=== PATIENT | female | born 1960 | race Two or more races ===

== ENCOUNTER 2016-03-10 10:55 | Emergency (ER) | payer OTHER ==
[~2016-03-10] VITALS: Ht 154.9 cm; Wt 81.6 kg
[2016-03-10 11:24] VITALS: BP 127/76
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
[2016-03-10] MEDS ORDERED: TYLENOL EXTRA500 MG ORAL (13:00)
[2016-03-10 13:05] VITALS: BP 125/74
[2016-03-10 13:17] VITALS: BP 125/74
--- NOTE | 2016-03-10 17:22 | Diagnostic Imaging Report ---
Indication: PAIN Technique: 2 views of the left hip Comparison: None Findings: No acute fractures. No dislocations. Joint spaces are preserved. Normal mineralization. Impression: No acute process
== END 2016-03-10 13:20 | disposition home or self-care (01) ==
LOC: EMR 12:57
DX: M25.552 Pain in left hip (principal)
CPT/HCPCS: 73502; 99283

== ENCOUNTER 2016-11-08 10:34 | Emergency (ER) | payer OTHER ==
[~2016-11-08] VITALS: Ht 152.4 cm; Wt 81.6 kg
[~2016-11-08 10:34] MED LIST: TYLENOL EXTRA500 MG ORAL
[2016-11-08] MEDS ORDERED: Acetaminophen 500mg (ES) tab ORAL ONE (11:15)
--- NOTE | 2016-11-08 12:33 | Diagnostic Imaging Report ---
Indication: Chest pain Comparison: None A single view chest radiograph was obtained. Findings: Cardiomediastinal appearance is within normal limits for age. Pulmonary vascularity is appropriate. The diaphragmatic contour is smooth and costophrenic angles are sharp. No pleural effusions are identified. The bones are unremarkable. Impression: No acute findings
--- NOTE | 2016-11-08 13:18 | Emergency Room Report ---
History of Present Illness General Chief Complaint: Back Pain-No Injury Source: Patient Present Illness HPI Patient c/o upper back pain. She denies trauma or event which started this. She has increased pain when she moves, breathes, coughs. No fever, dyspnea, productive phlegm. No sore throat. No swelling of LE, calf pain, hemoptysis. Pain 8/10 when moving, 4-5/10 when quiet. She had this once before. Has taken advil with minimal relief. She works sewing. No smoke, HTN, DM, family hx CAD. She does have arthritis, not specific diagnosis. Allergies: Coded Allergies: No Known Allergies (Unverified , 03/10/16) Patient History Past Medical History: see triage record Social History: Denies: smoking, alcohol use, drug use Social History Narrative "costura" seamstress Reviewed Nursing Documentation: PMH: Agreed, PSxH: Agreed Review of Systems All Other Systems: negative except mentioned in HPI Physical Exam Vital Signs Date Time Temp Pulse Resp B/P (MAP) Pulse Ox O2 Delivery O2 Flow Rate FiO2 11/08/16 10:38 97.0 72 20 129/78 99 Room Air Sp02 EP Interpretation: reviewed, normal General Appearance: well appearing, no apparent distress, GCS 15 Head: normocephalic Eyes: bilateral eye normal inspection, bilateral eye PERRL ENT: moist mucus membranes Neck: supple Respiratory: lungs clear, normal breath sounds, other - upper back tenderness - muscle, not point tenderness Cardiovascular #1: regular rate, rhythm, no edema Cardiovascular #2: 2+ radial (R) Gastrointestinal: normal inspection, normal bowel sounds, non tender, no mass, non-distended Musculoskeletal: gait/station normal, normal range of motion, no calf tenderness, other - see chest, FROM - muscles tender and tight - when palp - recreates pain Neurologic: alert, oriented x3, grossly normal Psychiatric: mood/affect normal Skin: normal inspection, warm/dry Medical Decision Making Diagnostic Impression: Primary Impression: Back pain Qualified Codes: M54.6 - Pain in thoracic spine Additional Impression: Muscle spasm ER Course Patient presents with upper back pain. No cardiac risk factors and not sound exertional. Ddx: bronchitis, PE, muscle strain/spasm, spine osteo amongst others. Exam and VS against PE. Evaluation with CXR. Treatment with motrin and tylenol. Sy and signs are against infectious etiology. CXR no acute disease. Improved with treatment. She was mainly concerned about serious causes. Occupation possibly contributes. Patient stable for outpatient observation and treatment. Chest X-Ray Diagnostic Results Chest X-Ray Diagnostic Results : Chest X-Ray Ordered: Yes # of Views/Limited/Complete: 1 View Indication: Chest Pain EP Interpretation: Yes Interpretation: no consolidation, no effusion, no pneumothorax, no acute cardiopulmonary disease Impression: No acute disease Electronically Signed by: Jose L Freitas MD Last Vital Signs Date Time Temp Pulse Resp B/P (MAP) Pulse Ox O2 Delivery O2 Flow Rate FiO2 11/08/16 13:28 98.0 70 16 130/80 98 Room Air Status: improved Disposition: HOME, SELF-CARE Condition: Improved Scripts Ibuprofen* (MOTRIN*) 600 Mg Tablet 600 MG ORAL Q6H Y for For Pain, #20 TAB Prov: Jose L Freitas M.D. 11/08/16 Methocarbamol* (ROBAXIN*) 500 Mg Tablet 500 MG PO TID Y for muscle spasms, #12 TAB 0 Refills Prov: Jose L Freitas M.D. 11/08/16 Tramadol Hcl* (ULTRAM*) 50 Mg Tablet 50 MG ORAL Q6H Y for For Pain, #14 TAB 0 Refills Prov: Jose L Freitas M.D. 11/08/16 Referrals: [facility]ERR[facility] (PCP) Jose L Freitas M.D. Nov 08, 2016 13:18
[2016-11-08] MEDS ORDERED: ROBAXIN500 MG PO (13:22)
[2016-11-08] MEDS ORDERED: TRAMADOL HCL50 MG ORAL (13:22)
[2016-11-08] MEDS ORDERED: IBUPROFEN600 MG ORAL (13:22)
[2016-11-08 13:26] VITALS: BP 130/80
[2016-11-08 13:28] VITALS: BP 130/80
== END 2016-11-08 13:31 | disposition home or self-care (01) ==
LOC: EMR 11:10
DX: M54.6 Pain in thoracic spine (principal); M62.838 Other muscle spasm; M19.90 Unspecified osteoarthritis, unspecified site; R07.9 Chest pain, unspecified
CPT/HCPCS: 71010; 99284

== ENCOUNTER 2017-01-14 19:44 | Emergency (ER) | payer OTHER ==
[~2017-01-14] VITALS: Ht 152.4 cm; Wt 85.7 kg
[~2017-01-14 19:44] MED LIST changes: +IBUPROFEN600 MG ORAL; +ROBAXIN500 MG PO; +TRAMADOL HCL50 MG ORAL
--- NOTE | 2017-01-14 20:57 | Emergency Room Report ---
History of Present Illness General Chief Complaint: Upper Extremity Injury Source: Patient Present Illness HPI 56-year-old female, presenting with left elbow pain after fall. States that she had a mechanical fall, denies hitting her head or any LOC. Patient took 600 mg of Motrin one hour prior to arrival. Pointing to left elbow for pain no other complaints Allergies: Coded Allergies: No Known Allergies (Unverified , 03/10/16) Patient History Past Medical History: see triage record Past Surgical History: none Pertinent Family History: none Reviewed Nursing Documentation: PMH: Agreed, PSxH: Agreed Review of Systems All Other Systems: negative except mentioned in HPI Physical Exam Vital Signs Date Time Temp Pulse Resp B/P (MAP) Pulse Ox O2 Delivery O2 Flow Rate FiO2 01/14/17 19:50 97.9 95 16 125/87 97 Room Air Sp02 EP Interpretation: reviewed, normal General Appearance: normal inspection, well appearing, no apparent distress, alert, GCS 15, non-toxic Head: normocephalic, atraumatic Eyes: bilateral eye normal inspection, bilateral eye PERRL, bilateral eye EOMI ENT: normal ENT inspection, normal pharynx, normal voice, moist mucus membranes Neck: normal inspection, full range of motion, supple Respiratory: normal inspection, lungs clear, normal breath sounds, no respiratory distress, no retraction, no wheezing, speaking full sentences, chest symmetrical Cardiovascular #1: normal inspection, regular rate, rhythm, no edema, normal capillary refill Cardiovascular #2: 2+ radial (R), 2+ radial (L) Gastrointestinal: normal inspection, non tender, soft, non-distended, no guarding Musculoskeletal: other - Left elbow, tender to palpation, edema, limited range of motion secondary to pain, full range of motion of wrist and shoulder. Radial median ulnar nerve function intact Neurologic: normal inspection, alert, oriented x3, responsive, motor strength/ tone normal, sensory intact, normal gait, speech normal Psychiatric: normal inspection, judgement/insight normal, memory normal Skin: normal inspection, normal color, no rash, warm/dry, well hydrated, normal turgor Procedures Splinting Splinting : Consent: Verbal Location: L elbow Hand-Made Type: plaster Splint: posterior long Pre-Proc Neuro Vasc Exam: normal Post-Proc Neuro Vasc Exam: normal Patient Tolerated: Well Complications: None Medical Decision Making Diagnostic Impression: Primary Impression: Radial head fracture, closed ER Course 56-year-old female, elbow pain after fall DDX: Sprain/strain vs. fracture Plan: Pain control with motrin XR ER course: Patient reports improvement of pain with motrin. X-ray revealing radial head fracture Posterior long-arm splint placed The patient is neurovascularly intact before and after splint placement Disposition: Patient is to be discharged home with a prescription of motrin. Patient instructed to keep splint on at all times, and to follow up with orthopedic surgery in 1 week without fail Patient educated to rest, ice, and elevate extremity and to avoid vigorous activity. Strict precautions discussed with patient on when to return to the emergency room including increased redness or swelling joints, increased pain/swelling of extremity, fever or chills, which could indicate severe illness. Patient is to follow up with their primary care doctor within 5 days. Please note that this Emergency Department Report was dictated using [employer] speaking n[employer] technology software, occasionally this can lead to erroneous entry secondary to interpretation by the dictation equipment. Xray ordered: Left elbow 2 view Indication: Pain EP Interpretation: Yes Interpretation: Radial head fracture, no dislocation Impression: Radial head fracture Electronically signed by Brandin Ramos MD Xray: Left forearm 2 view Indication: Pain EP Interpretation: Yes Interpretation: Radial head fracture, no dislocation Impression: Radial head fracture Electronically signed by Brandin Ramos MD Last Vital Signs Date Time Temp Pulse Resp B/P (MAP) Pulse Ox O2 Delivery O2 Flow Rate FiO2 01/14/17 19:50 97.9 95 16 125/87 97 Room Air Disposition: HOME, SELF-CARE Condition: Improved Brandin Ramos M.D. Jan 14, 2017 20:57
[2017-01-14 21:13] VITALS: BP_SYST 122; BP_SYST 125; BP_DIAS 83; BP_DIAS 87
--- NOTE | 2017-01-15 10:21 | Diagnostic Imaging Report ---
Indication: Pain Findings: 3 views of the left elbow were obtained. Joint effusion demonstrated. Comminuted intra-articular fracture of the radial head demonstrated. Impression: Acute radial head fracture
--- NOTE | 2017-01-15 10:21 | Diagnostic Imaging Report ---
Indication: Pain Findings: 2 views of the left forearm were obtained. Fracture radial head noted. No other fractures are seen or malalignment identified. The Impression: Acute fracture of the radial head
== END 2017-01-14 21:14 | disposition home or self-care (01) ==
LOC: EMR 20:00
DX: S52.122A Displaced fracture of head of left radius, initial encounter for closed fracture (principal); W10.9XXA Fall (on) (from) unspecified stairs and steps, initial encounter; Y92.009 Unspecified place in unspecified non-institutional (private) residence as the place of occurrence of the external cause
CPT/HCPCS: 29105; 99283

== ENCOUNTER 2017-01-19 20:37 | Emergency (ER) | payer OTHER ==
[~2017-01-19] VITALS: Ht 154.9 cm; Wt 86.2 kg
[2017-01-19 21:22] VITALS: BP 127/78
--- NOTE | 2017-01-19 21:24 | Emergency Room Report ---
History of Present Illness General Chief Complaint: Upper Extremity Injury Source: Patient Present Illness HPI 56-year-old female walks in with request for placement of long-arm splint Patient was here 5 days ago and found to have a radial head fracture left elbow was placed in long-arm splint States pain much improved Concern with some swelling of the hand Saw primary care doctor yesterday however unable to get referral to orthopedist - she does ot know when she will have appointment Taking ibuprofen at home with improvement Allergies: Coded Allergies: No Known Allergies (Unverified , 03/10/16) Patient History Past Medical History: none Past Surgical History: none Pertinent Family History: none Last Menstrual Period: n/a Now: No Immunizations: UTD Reviewed Nursing Documentation: PMH: Agreed, PSxH: Agreed Review of Systems All Other Systems: negative except mentioned in HPI Physical Exam Vital Signs Date Time Temp Pulse Resp B/P (MAP) Pulse Ox O2 Delivery O2 Flow Rate FiO2 01/19/17 20:48 98.1 88 18 127/78 96 Room Air Sp02 EP Interpretation: reviewed, normal General Appearance: normal inspection, well appearing, no apparent distress, alert, GCS 15, non-toxic Head: normocephalic, atraumatic Eyes: bilateral eye PERRL, bilateral eye EOMI ENT: normal ENT inspection, hearing grossly normal, normal voice Neck: normal inspection, full range of motion, supple, no bony tend Respiratory: normal inspection, lungs clear, normal breath sounds, no respiratory distress, no retraction, no wheezing Cardiovascular #1: regular rate, rhythm, no edema Gastrointestinal: normal inspection, normal bowel sounds, non tender, soft, no guarding, no hernia Genitourinary: no CVA tenderness Musculoskeletal: normal inspection, back normal, normal range of motion, Nubia' s Sign negative, other - Left elbow: posterior long-arm splint in place; some nonpitting edema and noted. However neurovascularly intact. 2+ radial pulse. 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, motor strength/tone normal, speech normal Psychiatric: normal inspection, judgement/insight normal, mood/affect normal Skin: normal inspection, normal color, no rash Medical Decision Making Diagnostic Impression: Primary Impression: Radial head fracture, closed Qualified Codes: S52.125D - Nondisplaced fracture of head of left radius, subsequent encounter for closed fracture with routine healing ER Course 56-year-old female with subsequent visit for left radial head fracture Pain improved Sling and splint were placed Neurovascular intact, no sign of infection Advise continue pain meds as needed Strong recommendation for close orthopedic followup in one week ER course: Patient has remained stable during ED stay. Patient is to be discharged to home. Patient is instructed to follow up with ortho in 7 days Strict return precautions discussed with patient such as fever, chills, worsening/severe pain, nausea, vomiting, which may indicate severe illness. Patient verbalizes understanding and agrees with plan. Please note that this Emergency Department Report was dictated using [employer] technology software, occasionally this can lead to erroneous entry secondary to interpretation by the dictation equipment Last Vital Signs Date Time Temp Pulse Resp B/P (MAP) Pulse Ox O2 Delivery O2 Flow Rate FiO2 01/19/17 20:48 98.1 88 18 127/78 96 Room Air Status: improved Disposition: HOME, SELF-CARE FAUZIA PAULA M.D. Jan 19, 2017 21:24
[2017-01-19 21:54] VITALS: BP 130/66
== END 2017-01-19 21:54 | disposition home or self-care (01) ==
LOC: EMR 21:26
DX: S52.122A Displaced fracture of head of left radius, initial encounter for closed fracture (principal); X58.XXXA Exposure to other specified factors, initial encounter; Y92.89 Other specified places as the place of occurrence of the external cause
CPT/HCPCS: 29105; 99283

== ENCOUNTER 2017-03-26 13:58 | Emergency (ER) | payer OTHER ==
[~2017-03-26] VITALS: Ht 154.9 cm; Wt 86.2 kg
[2017-03-26] MEDS ORDERED: OMEPRAZOLE20 M2 ORAL (14:11)
[2017-03-26 15:19] LABS: APPEARANCE,URINE CLEAR; BILIRUBIN, URINE NEGATIVE (NEGATIVE); GLUCOSE, URINE (UA) NEGATIVE (NEGATIVE); KETONES,URINE NEGATIVE (NEGATIVE); LEUKOCYTE ESTERASE ,URINE NEGATIVE (NEGATIVE); NITRITE,URINE NEGATIVE (NEGATIVE); PH,URINE 6.5 (4.5-8.0); PROTEIN,URINE NEGATIVE (NEGATIVE); UROBILINOGEN,URINE NORMAL MG/DL (0.0-1.0)
[2017-03-26] MEDS ORDERED: IBUPROFEN600 MG ORAL (15:30)
[2017-03-26] MEDS ORDERED: PHENAZOPYRIDIN100 MG ORAL (15:30)
[2017-03-26] MEDS ORDERED: PROMETHAZINE-D118 ML ORAL (15:30)
[2017-03-26 15:35] VITALS: BP 140/72
--- NOTE | 2017-03-26 20:55 | Emergency Room Report ---
History of Present Illness General Chief Complaint: Upper Respiratory Illness Source: Patient Present Illness [facility] The patient is a 56-year-old female presenting for complaints of coughing as well as discolored urine. She states that she noticed a cough for approximately one week. Described as a dry cough. She denies any known sick contacts. She denies other symptoms including fever, chills, hemoptysis, shortness of breath, chest pain, myalgia, rash. She is also complaining of discolored urine described as pink. She denies dysuria, increased urinary frequency, vaginal discharge, abdominal pain. She is unsure she consumed any foods or liquids with coloring Allergies: Coded Allergies: No Known Allergies (Unverified , 03/10/16) Patient History Past Medical History: see triage record Past Surgical History: other Reviewed Nursing Documentation: PMH: Agreed, PSxH: Agreed Review of Systems All Other Systems: negative except mentioned in HPI Physical Exam Vital Signs Date Time Temp Pulse Resp B/P (MAP) Pulse Ox O2 Delivery O2 Flow Rate FiO2 03/26/17 14:06 97.7 101 18 138/78 95 Room Air Sp02 EP Interpretation: reviewed, normal General Appearance: no apparent distress, alert, GCS 15, non-toxic Head: normocephalic, atraumatic Eyes: bilateral eye normal inspection, bilateral eye PERRL ENT: hearing grossly normal, normal pharynx, no angioedema, normal voice Neck: full range of motion, supple/symm/no masses Respiratory: chest non-tender, lungs clear, normal breath sounds, no accessory muscle use, no wheezing, speaking full sentences Cardiovascular #1: regular rate, rhythm, no edema Gastrointestinal: normal bowel sounds, non tender, soft, non-distended, no guarding, no rebound Genitourinary: normal inspection, no CVA tenderness Musculoskeletal: back normal, gait/station normal, normal range of motion, non- tender Neurologic: alert, oriented x3, responsive, motor strength/tone normal, sensory intact, speech normal Psychiatric: judgement/insight normal, memory normal, mood/affect normal, no suicidal/homicidal ideation Skin: normal color, no rash, warm/dry, well hydrated Medical Decision Making PA Attestation Dr. Olguin is my supervising physician. Patient management was discussed with my supervising physician Diagnostic Impression: Primary Impression: Dysuria Additional Impression: Cough ER Course The patient is a 56-year-old female presenting for complaints of coughing as well as discolored urine. Differential diagnosis considered but not limited to: UTI, vaginitis, pyelonephritis, pyelonephrosis, PID, ectopic Differential diagnosis include but not limited to pharyngitis, sinusitis, AOM, bronchitis, PNA PE:afebrile. No apparent distress. No TTP over maxillary or frontal sinuses. Lungs CTA bilat. No wheezing. No accessory muscle use. Heart: RRR, no abnormal heart sounds Ears: external auditory canal clear. Non erythematous. Bilat TM intact. Cone of light present bilat. No bulging of TM. No serous fluid seen. no nasal D/C no cervical lymphad No tonsillar exudate. Uvula midline.Oropharynx non erythematous Abd soft and non tender. No CVA tenderness Urinalysis unremarkable. Chest x-ray unremarkable The patient is discharged home and will be treated with symptomatic control. ER precautions are given Laboratory Tests Test 03/26/17 14:20 Urine Color Urine Appearance Clear Urine pH 6.5 (4.5-8.0) Urine Specific [place] 1.005 (1.005-1.035) Urine Protein Negative (NEGATIVE) Urine Glucose (UA) Negative (NEGATIVE) Urine Ketones Negative (NEGATIVE) Urine Occult Blood Negative (NEGATIVE) Urine Nitrite Negative (NEGATIVE) Urine Bilirubin Negative (NEGATIVE) Urine Urobilinogen Normal MG/DL (0.0-1.0) Urine Leukocyte Esterase Negative (NEGATIVE) Lab Results Impression UA unremarkable Chest X-Ray Diagnostic Results Chest X-Ray Diagnostic Results : Chest X-Ray Ordered: Yes # of Views/Limited/Complete: 1 View Indication: Other - cough EP Interpretation: Yes SHAE Xray: Interpretation reviewed, by supervising MD, and agrees with findings. Interpretation: no consolidation, no effusion, no pneumothorax, no acute cardiopulmonary disease Impression: No acute disease Electronically Signed by: Allan Hall PA-C Last Vital Signs Date Time Temp Pulse Resp B/P (MAP) Pulse Ox O2 Delivery O2 Flow Rate FiO2 03/26/17 15:35 97.7 80 20 140/72 97 Room Air Status: improved Disposition: HOME, SELF-CARE Condition: Improved Scripts D-Methorphan Hb/Prometh Hcl* (PROMETHAZINE-DM SYRUP*) 118 Ml Syrup 5 ML ORAL Q6H Y for For Cough, #118 ML 0 Refills Prov: ALLAN HALL 03/26/17 Phenazopyridine Hcl* (PYRIDIUM*) 100 Mg Tablet 100 MG ORAL THREE TIMES A DAY, #9 TAB Prov: ALLAN HALL.A. 03/26/17 Ibuprofen* (MOTRIN*) 600 Mg Tablet 600 MG ORAL Q8H Y for For Pain, #30 TAB 0 Refills Prov: ALLAN HALL 03/26/17 Patient Instructions: Cough, Adult Additional Instructions: I discussed my findings with the patient. All questions and concerns have been answered. Treatment and medication compliance have been addressed. I advised the patient that they need to follow up with PMD in 3-5 days. Return to ED if symptoms worsen, new symptoms arise, or if needed for any reason. Patient verbalized understanding of discharge instructions. ALLAN HALL Mar 26, 2017 20:55
--- NOTE | 2017-03-27 10:52 | Diagnostic Imaging Report ---
Indication: Cough Comparison: 11/08/2016 A single view chest radiograph was obtained. Findings: Cardiomediastinal appearance is within normal limits for age. Pulmonary vascularity is appropriate. The diaphragmatic contour is smooth and costophrenic angles are sharp. No pleural effusions are identified. The bones are unremarkable. Impression: No acute findings
== END 2017-03-26 15:35 | disposition home or self-care (01) ==
LOC: EMR 14:32
DX: R05 Cough (principal); R30.0 Dysuria
CPT/HCPCS: 71045; 81003; 99284

== ENCOUNTER 2018-01-25 10:37 | Emergency (ER) | payer OTHER ==
[~2018-01-25] VITALS: Ht 154.9 cm; Wt 83.5 kg
[~2018-01-25 10:37] MED LIST changes: +OMEPRAZOLE20 M2 ORAL; +PHENAZOPYRIDIN100 MG ORAL; +PROMETHAZINE-D118 ML ORAL
[2018-01-25] MEDS ORDERED: clindamycin PO (10:47)
[2018-01-25] MEDS ORDERED: VITAMIN D400 INTLU ORAL (10:47)
[2018-01-25 11:15] VITALS: BP_SYST 124; BP_SYST 132; BP_DIAS 82; BP_DIAS 90
[2018-01-25] MEDS ORDERED: Tetanus/Diptheria/Pertussis Vaccine 0.5ml Syr IM ONE (11:15)
--- NOTE | 2018-01-25 12:39 | Emergency Room Report ---
History of Present Illness General Chief Complaint: Upper Extremity Injury Source: Patient Present Illness HPI Patient presents with reports of injury to the left index finger after a sewing machine injury This happened several days ago patient was seen by her primary physician initiated on antibiotics Patient reports that she was not able to get her tetanus shot as it was not available and presents for further evaluation Denies any trismus or TMJ pain denies any headache denies any chest pain or shortness of breath Allergies: Coded Allergies: No Known Allergies (Unverified , 03/10/16) Patient History Past Medical History: see triage record Pertinent Family History: none Reviewed Nursing Documentation: PMH: Agreed; PSxH: Agreed Nursing Documentation-PMH Past Medical History: No History, Except For Review of Systems All Other Systems: negative except mentioned in HPI Physical Exam Vital Signs Date Time Temp Pulse Resp B/P (MAP) Pulse Ox O2 Delivery O2 Flow Rate FiO2 01/25/18 10:40 97.7 83 17 132/90 98 Room Air Sp02 EP Interpretation: reviewed, normal General Appearance: well appearing, no apparent distress Head: normocephalic, atraumatic Eyes: bilateral eye PERRL, bilateral eye EOMI ENT: hearing grossly normal, normal pharynx, TMs + canals normal, uvula midline Respiratory: lungs clear, normal breath sounds, no rhonchi, no respiratory distress, no retraction, no accessory muscle use Musculoskeletal: other - Mild ecchymosis at the nailbed region consistent with the trauma Neurologic: oriented x3, responsive, nozzle tender III-XII nml as tested, motor strength/ tone normal, sensory intact Psychiatric: mood/affect normal Skin: palpation normal, other - As above Lymphatic: normal inspection, no adenopathy Medical Decision Making Diagnostic Impression: Primary Impression: puncture wound ER Course Given the patient's history and presentation Given the puncture wound with a needle She was provided with tetanus shot here She has appropriate outpatient follow-up and will return with any changes Last Vital Signs Date Time Temp Pulse Resp B/P (MAP) Pulse Ox O2 Delivery O2 Flow Rate FiO2 01/25/18 11:15 97.7 85 17 124/82 99 Room Air Status: improved Disposition: HOME, SELF-CARE Condition: Improved Referrals: NON PHYSICIAN (PCP) Patient Instructions: Puncture Wound, [id number] Additional Instructions: Patient is provided with the discharge instructions notified to follow up with primary doctor in the next 2-3 days otherwise return to the er with any worsening symptoms. Please note that this report is being documented using DRAGON technology. This can lead to erroneous entry secondary to incorrect interpretation by the dictating instrument. Nedra Salinas DO Jan 25, 2018 12:39
== END 2018-01-25 11:15 | disposition home or self-care (01) ==
LOC: EMR 10:55
DX: S61.231A Puncture wound without foreign body of left index finger without damage to nail, initial encounter (principal); Y93.D2 Activity, sewing; Y92.89 Other specified places as the place of occurrence of the external cause; Z23 Encounter for immunization
CPT/HCPCS: 90471; 90715; 99283

== ENCOUNTER 2019-03-30 13:30 | Emergency (ER) | payer OTHER ==
[~2019-03-30] VITALS: Ht 152.4 cm; Wt 78.9 kg
[~2019-03-30 13:30] MED LIST changes: +VITAMIN D400 INTLU ORAL; +clindamycin PO
[2019-03-30 13:34] VITALS: BP 125/78
--- NOTE | 2019-03-30 13:38 | NUR ---
ED Nurse Note: pt walked in to ED due to lower back pain for last 3 days. pt denies any injury or urinary problems. limited ROM noted due to pain. ambulatory with steady gait. AAO x4. respirations even and non-labored noted. will wait for the further order.
[2019-03-30] MEDS ORDERED: Methocarbamol 750mg tab ORAL ONE (13:45)
[2019-03-30 14:33] LABS: APPEARANCE,URINE CLEAR; BILIRUBIN, URINE NEGATIVE (NEGATIVE); COLOR,URINE PALE YELLOW; GLUCOSE, URINE (UA) NEGATIVE (NEGATIVE); KETONES,URINE NEGATIVE (NEGATIVE); LEUKOCYTE ESTERASE ,URINE NEGATIVE (NEGATIVE); NITRITE,URINE NEGATIVE (NEGATIVE); PH,URINE 5 (4.5-8.0); PROTEIN,URINE NEGATIVE (NEGATIVE); UROBILINOGEN,URINE NORMAL MG/DL (0.0-1.0)
--- NOTE | 2019-03-30 14:36 | Emergency Room Report ---
History of Present Illness General Chief Complaint: Back Pain-No Injury Source: Medical Record Present Illness HPI 58-year-old female with no significant past medical history here complaining of right-sided lower back pain x3 days. Patient denies any fall or injury. 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 Denies pain radiation, tingling numbness, saddle paresthesia, urinary or bowel incontinence. Denies any urinary frequency or urgency. Denies pain radiation into the suprapubic area. Denies fever and chills, nausea vomiting, diffuse abdominal pain. Denies chest pain, shortness of breath, palpitation, headache and dizziness. Has not taken medication for symptom relief. Allergies: Coded Allergies: No Known Allergies (Unverified , 03/10/16) Patient History Past Medical History: see triage record Past Surgical History: none Pertinent Family History: none Now: No Immunizations: UTD Reviewed Nursing Documentation: PMH: Agreed; PSxH: Agreed Nursing Documentation-PMH Past Medical History: No History, Except For Review of Systems All Other Systems: negative except mentioned in HPI Physical Exam Vital Signs Date Time Temp Pulse Resp B/P (MAP) Pulse Ox O2 Delivery O2 Flow Rate FiO2 03/30/19 13:34 98.1 83 15 125/78 95 Room Air Sp02 EP Interpretation: reviewed, normal General Appearance: no apparent distress, alert, GCS 15, non-toxic Head: normocephalic, atraumatic Eyes: bilateral eye normal inspection, bilateral eye PERRL ENT: hearing grossly normal, normal pharynx, no angioedema, normal voice Neck: full range of motion, supple/symm/no masses Respiratory: chest non-tender, lungs clear, normal breath sounds, no rhonchi, no wheezing, speaking full sentences Cardiovascular #1: regular rate, rhythm, no edema, no murmur Gastrointestinal: normal bowel sounds, non tender, soft, non-distended, no guarding, no rebound Rectal: deferred Genitourinary: no CVA tenderness Musculoskeletal: back normal, digits/nails normal, no calf tenderness, pelvis stable, non-tender Neurologic: alert, motor strength/tone normal, oriented x3, sensory intact, responsive, speech normal Psychiatric: judgement/insight normal, memory normal, mood/affect normal, no suicidal/homicidal ideation Skin: no rash, normal color Lymphatic: no adenopathy Medical Decision Making PA Attestation All diagnoses and treatment plans were reviewed and discussed with my supervising physician Dr. Freitas Diagnostic Impression: Primary Impression: Lumbar strain ER Course 58-year-old female with no significant past medical history here complaining of right-sided lower back pain x3 days. Patient denies any fall or injury. 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 Denies pain radiation, tingling numbness, saddle paresthesia, urinary or bowel incontinence. Denies any urinary frequency or urgency. Denies pain radiation into the suprapubic area. Denies fever and chills, nausea vomiting, diffuse abdominal pain. Denies chest pain, shortness of breath, palpitation, headache and dizziness. Has not taken medication for symptom relief. Ddx considered but are not limited to: Lumbar spine sprain, strain, fracture, contusion, neuropathy, pyelonephritis, UTI Vital signs: are WNL, pt. is afebrile H&PE are most consistent with: Lumbar strain ORDERS: UA, urine culture, Motrin, Robaxin, lidocaine patch ER intervention: Tylenol, Robaxin DISCHARGE: At this time pt. is stable for d/c to home. Will provide printed patient care instructions, and any necessary prescriptions. Care plan and follow up instructions have been discussed with the patient prior to discharge. Patient take medication as directed, follow-up primary care provider, increase oral hydration, no x-ray necessary as patient did not fall or injure herself and bony tenderness noted. No signs of CVA tenderness or pyelonephritis noted. If worsening symptom return to the emergency room. Last Vital Signs Date Time Temp Pulse Resp B/P (MAP) Pulse Ox O2 Delivery O2 Flow Rate FiO2 03/30/19 13:34 98.1 83 15 125/78 (94) 95 Room Air Status: improved Disposition: HOME, SELF-CARE Condition: Stable Scripts Lidocaine Patch* (Lidoderm Patch*) 1 Each Adh..patch 1 PATCH TOPIC DAILY, #7 PATCH 0 Refills Patch(es) may remain in place for up to 12 hours in any 24-hour period. Prov: Cayetano Luis 03/30/19 Ibuprofen* (MOTRIN*) 600 Mg Tablet 600 MG ORAL Q8H PRN for For Pain, #30 TAB 0 Refills Prov: Cayetano Luis 03/30/19 Methocarbamol* (ROBAXIN-500*) 500 Mg Tablet 500 MG ORAL TID PRN for For Pain, #15 TAB 0 Refills Prov: Cayetano Luis 03/30/19 Patient Instructions: Back Pain, Adult, Lumbosacral Strain Additional Instructions: Take medication as directed, avoid strenuous physical activity, alternate between icing and heating the affected area, if worsening symptoms return to the emergency room Cayetano Luis Mar 30, 2019 14:36
[2019-03-30] MEDS ORDERED: LIDODERM700 M1 TOPIC (14:37)
[2019-03-30] MEDS ORDERED: ROBAXIN-500MG ORAL (14:37)
[2019-03-30] MEDS ORDERED: IBUPROFEN600 MG ORAL (14:37)
[2019-03-30 15:07] VITALS: BP 121/77
--- NOTE | 2019-03-30 15:07 | NUR ---
ER DISCHARGE NOTE: Patient is cleared to be discharged per ERMD, pt is aox4, on room air, with stable vital signs. pt was given dc instructions, pt was able to verbalize understanding, pt id band removed. pt is able to ambulate with steady gait. pt took all belongings.
== END 2019-03-30 15:07 | disposition home or self-care (01) ==
LOC: EMR 14:00
DX: S39.012A Strain of muscle, fascia and tendon of lower back, initial encounter (principal); X58.XXXA Exposure to other specified factors, initial encounter; Y92.9 Unspecified place or not applicable
CPT/HCPCS: 81003; Z7502; 99283

== ENCOUNTER 2019-04-19 12:44 | Emergency (ER) | payer OTHER ==
[~2019-04-19] VITALS: Ht 152.4 cm; Wt 78.9 kg
[~2019-04-19 12:44] MED LIST changes: +LIDODERM700 M1 TOPIC; +ROBAXIN-500MG ORAL
[2019-04-19 12:58] VITALS: BP 141/84
--- NOTE | 2019-04-19 13:16 | NUR ---
ED Nurse Note: Patient walked into ER due to flu-like symptoms for the past few days; c/o productive cough with clear phlemg, headache. Attemtped to relieve pain with Excedrin and had some relief. Patient awake, alert, oriented x 4. Regular, unlabored breathing noted. Able to speak full sentence without SOB. No facial grimacing or guarding noted.
--- NOTE | 2019-04-19 14:02 | Emergency Room Report ---
History of Present Illness General Chief Complaint: Upper Respiratory Illness Source: Patient Present Illness HPI 58-year-old female presents to the emergency department complaining of having an intermittent cough, nasal congestion, watery eyes and a 3 out of 10 in severity progressive onset headache since this a.m. She denies sudden onset of her headache. Patient reports that her headache has resolved now after she drank a cup of coffee and took 1 Excedrin Migraine. Patient reports she has headaches similar every now and then however she states she feels she has a cold at the moment. She denies sneezing or itchy eyes. She denies mucus production, fevers or chills, neck pain/stiffness or photophobia. She denies any significant past medical history. Denies recent travel and states that her daughter has similar symptoms of cough and nasal congestion as well. pt. reports she is vaccinated. Denies CP, Palpitations, SOB, wheezing, body-aches or severe fatigue. Allergies: Coded Allergies: No Known Allergies (Unverified , 03/10/16) Patient History Past Medical History: see triage record Past Surgical History: none Pertinent Family History: none Last Menstrual Period: na Now: No Reviewed Nursing Documentation: PMH: Agreed; PSxH: Agreed Review of Systems All Other Systems: negative except mentioned in HPI Physical Exam Vital Signs Date Time Temp Pulse Resp B/P (MAP) Pulse Ox O2 Delivery O2 Flow Rate FiO2 04/19/19 12:58 97.7 18 141/84 98 Room Air 04/19/19 12:58 76 Sp02 EP Interpretation: reviewed, normal General Appearance: no apparent distress, alert, GCS 15, non-toxic Head: normocephalic, atraumatic Eyes: bilateral eye normal inspection, bilateral eye PERRL, bilateral eye other - no photophobia ENT: hearing grossly normal, normal pharynx, normal voice, TMs + canals normal - excessive cerumen in the Left ear canal, uvula midline, moist mucus membranes , nasal congestion - mild, nares are patent bilaterally Neck: full range of motion, no meningismus Respiratory: chest non-tender, lungs clear, normal breath sounds, no wheezing, speaking full sentences Cardiovascular #1: regular rate, rhythm, no edema, normal capillary refill Musculoskeletal: normal range of motion, gait/station normal, non-tender Neurologic: alert, motor strength/tone normal, oriented x3, sensory intact, responsive, speech normal, grossly normal, no focal defects Psychiatric: judgement/insight normal Skin: no rash, normal color Lymphatic: no adenopathy Medical Decision Making PA Attestation Dr. Hoyt is my supervising Physician whom patient management has been discussed with. Diagnostic Impression: Primary Impression: Upper respiratory infection Qualified Codes: J06.9 - Acute upper respiratory infection, unspecified Additional Impression: Excessive cerumen in left ear canal ER Course 58-year-old female presents to the emergency department complaining of having an intermittent cough, nasal congestion, watery eyes and a 3 out of 10 in severity progressive onset headache since this a.m. She denies sudden onset of her headache. Patient reports that her headache has resolved now after she drank a cup of coffee and took 1 Excedrin Migraine. Patient reports she has headaches similar every now and then however she states she feels she has a cold at the moment. She denies sneezing or itchy eyes. She denies mucus production, fevers or chills, neck pain/stiffness or photophobia. She denies any significant past medical history. Denies recent travel and states that her daughter has similar symptoms of cough and nasal congestion as well. pt. reports she is vaccinated. Denies CP, Palpitations, SOB, wheezing, body-aches or severe fatigue. Ddx considered but are not limited to URI, pneumonia, PE, strep pharyngitis, meningitis. Vital signs: Pt. is afebrile, the remaining VS are WNL H&PE are most consistent with URI- no meningeal signs, oropharynx is not involved, no evidence of bacterial infection at this time. Patient is nontoxic in appearance and in no acute distress does not demonstrate signs of being in respiratory distress or having a severe bacterial or viral illness at this time. ORDERS: none required at this time, the diagnosis is clinical ED INTERVENTIONS: None required at this time. --PT. EDUCATION: Discussed antibiotic resistance with inappropriate prescribing of antibiotics for viral illnesses. Discussed signs and symptoms to indicate viral illness versus bacterial illness. DISCHARGE: At this time pt. is stable for d/c to home. Will provide printed patient care instructions, and any necessary prescriptions. Care plan and follow up instructions have been discussed with the patient prior to discharge. Last Vital Signs Date Time Temp Pulse Resp B/P (MAP) Pulse Ox O2 Delivery O2 Flow Rate FiO2 3/6/20 13:16 74 16 Room Air 04/19/19 12:58 97.7 141/84 (103 98 Disposition: HOME, SELF-CARE Condition: Stable Scripts Carbamide Peroxide (DEBROX) 15 Ml Drops 10 DROP BOTH EARS TWICE A DAY for 4 Days, #15 ML 0 Refills Prov: Dorothy Esteves 04/19/19 D-Methorphan Hb/Prometh Hcl* (PROMETHAZINE-DM SYRUP*) 118 Ml Syrup 5 ML ORAL Q6H PRN for For Cough, #120 ML 0 Refills Prov: Dorothy Esteves 04/19/19 Patient Instructions: Upper Respiratory Infection, Adult Additional Instructions: Take medications as directed. Follow up with a Primary Care Provider in 3-5 days, even if your symptoms have resolved. --Please review list of primary care clinics, if you do not already have a primary care provider Return sooner to ED if new symptoms occur, or current symptoms become worse. - Please note that this Emergency Department Report was dictated using ROBAUTOhydraulic dredge operator technology software, occasionally this can lead to erroneous entry secondary to interpretation by the dictation equipment. Dorothy Esteves Apr 19, 2019 14:02
[2019-04-19] MEDS ORDERED: PROMETHAZINE-D118 ML ORAL (14:03)
[2019-04-19] MEDS ORDERED: DEBROX15 M1 BOTH EARS (14:03)
[2019-04-19 14:10] VITALS: BP 141/84
--- NOTE | 2019-04-19 14:11 | NUR ---
ED Nurse Note: Pt cleared by health care Provider for discharge. DC instructions/prescription was given and explained to pt and verbalized understanding of teachings. All medical deviecs such as ID band removed. Pt is AAO x4, ambulatory and left with all personal belongings.
== END 2019-04-19 14:11 | disposition home or self-care (01) ==
LOC: EMR 14:08
DX: J06.9 Acute upper respiratory infection, unspecified (principal); H61.22 Impacted cerumen, left ear; R51 Headache
CPT/HCPCS: 99282

== ENCOUNTER 2019-12-03 12:14 | Emergency (ER) | payer OTHER ==
[~2019-12-03] VITALS: Ht 152.4 cm; Wt 81.2 kg
[~2019-12-03 12:14] MED LIST changes: +DEBROX15 M1 BOTH EARS
--- NOTE | 2019-12-03 13:16 | Emergency Room Report ---
History of Present Illness General Chief Complaint: Lower Extremity Injury Present Illness HPI 59 YO female presents to the ED c/o 10/23 in severity pain that is localized mainly in the left heel area with associated swelling x 5 days. Pt. reports she is now developing some pain in the anterior left knee x 2 days. She reports having to walk on the side of her heel. She denies notably stepping on anything. She denies trauma or fall. She denies bruising or skin discoloration. She denies paresthesias. She reports very sharp pain as if stepping on nails when she does bear weight on the left foot. She denies ankle or calf pain. She denies swelling of the left knee. She denies feeling of instability. She denies fevers or chills. She reports hx of arthritis. She denies excessive walking or standing prior to onset of her symptoms. She denies strenuous activities. She reports taking 2 600mg IBu daily with some temporary relief of pain but not of swelling. Allergies: Coded Allergies: No Known Allergies (Unverified , 03/10/16) COVID-19 Screening Contact w/high risk pt: No Experienced COVID-19 symptoms?: No COVID-19 Testing performed MANAGER LAND: No Patient History Past Medical History: see triage record Past Surgical History: none Pertinent Family History: none Now: No Reviewed Nursing Documentation: PMH: Agreed; PSxH: Agreed Review of Systems All Other Systems: negative except mentioned in HPI Physical Exam Vital Signs Date Time Temp Pulse Resp B/P (MAP) Pulse Ox O2 Delivery O2 Flow Rate FiO2 12/02/ 12:20 98.4 70 18 135/84 (101) 95 Room Air Sp02 EP Interpretation: reviewed, normal General Appearance: no apparent distress, alert, GCS 15, non-toxic Head: normocephalic, atraumatic Eyes: bilateral eye normal inspection, bilateral eye PERRL ENT: hearing grossly normal, normal voice Neck: full range of motion Respiratory: chest non-tender, lungs clear, normal breath sounds, speaking full sentences Cardiovascular #1: regular rate, rhythm, no edema, normal capillary refill Cardiovascular #2: 2+ dorsalis pedis (R), 2+ dorsalis pedis (L) Musculoskeletal: back normal, normal range of motion, gait/station normal - Pt. slightly favors the left foot., tender - TTP to the plantar aspect of the left foot. there is visible swelling just distal to the heel at the medial arch, no bruises, Some ttp to anterior left knee, no instability on exam. FROM. negative ant. and post. drawer. Neurologic: alert, motor strength/tone normal, oriented x3, sensory intact, responsive, speech normal Psychiatric: judgement/insight normal Skin: no rash, normal color Medical Decision Making SHAE Attestletitia Pacheco is my supervising Physician whom patient management has been discussed with. Diagnostic Impression: Primary Impression: Plantar fasciitis of left foot ER Course 59 YO female presents to the ED c/o 10/23 in severity pain that is localized mainly in the left heel area with associated swelling x 5 days. Pt. reports she is now developing some pain in the anterior left knee x 2 days. She reports having to walk on the side of her heel. She denies notably stepping on anything. She denies trauma or fall. She denies bruising or skin discoloration. She denies paresthesias. She reports very sharp pain as if stepping on nails when she does bear weight on the left foot. She denies ankle or calf pain. She denies swelling of the left knee. She denies feeling of instability. She denies fevers or chills. She reports hx of arthritis. She denies excessive walking or standing prior to onset of her symptoms. She denies strenuous activities. She reports taking 2 600mg IBu daily with some temporary relief of pain but not of swelling. Ddx considered but are not limited to cellulitis, retained ST fb, Fracture, dislocation, contusion, Sprain/Strain/Spasm, plantar fasciitis, heel Spur, arthritis just to name a few. Vital signs: are WNL, pt. is afebrile H&PE are most consistent with musculoskeletal injury will perform imaging to r/o fractures/dislocations. ORDERS: - X-ray Left foot and left knee 3 views each -Negative for fx, Dislocation, or significant soft tissue injury, per preliminary read in ED, and signed by SHAE Esteves, my supervising physician has reviewed, and agrees with my interpretation. ED INTERVENTIONS: - [ ] DISCHARGE: At this time pt. is stable for d/c to home. Will provide printed patient care instructions, and any necessary prescriptions. Care plan and follow up instructions have been discussed with the patient prior to discharge. Other X-Ray Diagnostic Results Other X-Ray Diagnostic Results #1: X-Ray ordered: Left Foot # of Views/Limited Vs Complete: 3 View Indication: Pain EP Interpretation: Yes SHAE Xray: Interpretation reviewed, by supervising MD, and agrees with findings. Interpretation: no dislocation, no soft tissue swelling, no fractures Impression: No acute disease Electronically Signed by: Dorothy Esteves PA-C Other X-Ray Diagnostic Results #2: X-Ray ordered: Left knee # of Views/Limited Vs Complete: 3 View Indication: Pain EP Interpretation: Yes SHAE Xray: Interpretation reviewed, by supervising MD, and agrees with findings. Interpretation: no dislocation, no soft tissue swelling, no fractures Impression: No acute disease Electronically Signed by: Dorothy Esteves PA-C Last Vital Signs Date Time Temp Pulse Resp B/P (MAP) Pulse Ox O2 Delivery O2 Flow Rate FiO2 12/03/19 12:20 98.4 70 18 135/84 (101) 95 Room Air Status: improved Disposition: HOME, SELF-CARE Condition: Stable Scripts Diclofenac Sodium (VOLTAREN) 100 Gm Gel..gram. 1 APPLIC TP TID, #100 GM Prov: Dorothy Esteves 12/03/19 Acetaminophen With Codeine (T#3) (TYLENOL #3 TAB*) Y Tab 1 TAB ORAL Q6H PRN for For Pain, #9 TAB Prov: Dorothy Esteves 12/03/19 Naproxen* (NAPROXEN*) 500 Mg Tablet.dr 500 MG ORAL TWICE A DAY for 10 Days, #20 TAB Prov: Dorothy Esteves 12/03/19 Referrals: [facility],REFERRING (PCP) Patient Instructions: Plantar Fasciitis Additional Instructions: Take medications as directed. Do not drink alcohol, drive, or operate heavy machinery while taking Tylenol # 3 as this may cause drowsiness. Follow up with a Primary Care Provider in 3-5 days, even if your symptoms have resolved. --Please review list of primary care clinics, if you do not already have a primary care provider Return sooner to ED if new symptoms occur, or current symptoms become worse. - Please note that this Emergency Department Report was dictated using Flixel Photoselectrical and electronic assembler technology software, occasionally this can lead to erroneous entry secondary to interpretation by the dictation equipment. Dorothy Esteves Dec 03, 2019 13:16
[2019-12-03] MEDS ORDERED: Ketorolac 30mg Inj IM ONE (13:30)
[2019-12-03] MEDS ORDERED: VOLTAREN100 G1 TP (13:38)
[2019-12-03] MEDS ORDERED: ACETAMINOPHEN-1 EAC1 ORAL (13:38)
[2019-12-03] MEDS ORDERED: NAPROXEN500 M1 ORAL (13:38)
[2019-12-03 13:50] VITALS: BP 135/84
--- NOTE | 2019-12-03 14:26 | Diagnostic Imaging Report ---
INDICATION: Knee pain TECHNIQUE: XRAY Knee 3v LT Multiple views of the left knee were obtained COMPARISON: None FINDINGS: There is no acute fracture or dislocation. Joint spaces are maintained. No significant knee joint effusion No acute soft tissue abnormality. IMPRESSION: No acute fracture or dislocation.
--- NOTE | 2019-12-03 14:28 | Diagnostic Imaging Report ---
INDICATION: Foot pain TECHNIQUE: XRAY Foot Complete L Multiple views of the None were obtained COMPARISON: None FINDINGS: There is no acute fracture or dislocation. Joint spaces are maintained. No acute soft tissue abnormality. IMPRESSION: No acute fracture or dislocation
== END 2019-12-03 13:50 | disposition home or self-care (01) ==
LOC: EMR 12:37
DX: M72.2 Plantar fascial fibromatosis (principal); M19.90 Unspecified osteoarthritis, unspecified site
CPT/HCPCS: 73562; 73630; 96372; J1885; Z7502; 99283

== ENCOUNTER 2020-03-02 18:09 | Emergency (ER) | payer OTHER ==
[~2020-03-02] VITALS: Ht 152.4 cm; Wt 80.3 kg
[~2020-03-02 18:09] MED LIST changes: +ACETAMINOPHEN-1 EAC1 ORAL; +NAPROXEN500 M1 ORAL; +VOLTAREN100 G1 TP
--- NOTE | 2020-03-02 18:35 | NUR ---
ED Nurse Note: Pt ambulated to ED from home d/t L upper abdominal pain that started today. Pt is AOx4, calm and cooperative to care, VSS, on RA, afebrile on triage. Pt denies any nausea/vomiting/diarrhea. Pt was placed on bed and gown.
--- NOTE | 2020-03-02 18:50 | NUR ---
ED Nurse Note: blood and urine collected, sent to lab
[2020-03-02 19:03] VITALS: BP 130/87
[2020-03-02 19:08] LABS: BILIRUBIN, URINE NEGATIVE (NEGATIVE); COLOR,URINE PALE YELLOW; GLUCOSE, URINE (UA) NEGATIVE (NEGATIVE); KETONES,URINE 2+ (NEGATIVE); LEUKOCYTE ESTERASE ,URINE 3+ (NEGATIVE); NITRITE,URINE NEGATIVE (NEGATIVE); PH,URINE 5 (4.5-8.0); PROTEIN,URINE NEGATIVE (NEGATIVE); UROBILINOGEN,URINE NORMAL MG/DL (0.0-1.0)
[2020-03-02 19:11] LABS: BASOPHILS % (AUTO) 0.9 % (0.0-2.0); EOSINOPHILS % (AUTO) 1.8 % (0.0-3.0); HEMATOCRIT 45.9 % (37.0-47.0); HEMOGLOBIN 15.2 G/DL (12.0-16.0); MEAN CORPUSCULAR VOLUME 92 FL (80-99); MONOCYTES % (AUTO) 5.1 % (1.0-10.0); NEUTROPHILS % (AUTO) 47.2 % (45.0-75.0); PLATELET COUNT 270 K/UL (150-450); RED BLOOD COUNT 5.01 M/UL (4.20-5.40); RED CELL DISTRIBUTION WIDTH 12.9 % (11.6-14.8); WHITE BLOOD COUNT 8.5 K/UL (4.8-10.8)
[2020-03-02 19:19] LABS: ANION GAP 11 mmol/L (5-15); BLOOD UREA NITROGEN 15 mg/dL (7-18); CALCIUM 9.2 MG/DL (8.5-10.1); CARBON DIOXIDE 23 MMOL/L (21-32); CHLORIDE 106 MMOL/L (98-107); CREATININE 0.7 MG/DL (0.55-1.30); POTASSIUM 3.7 MMOL/L (3.5-5.1); SODIUM 140 MMOL/L (136-145)
[2020-03-02 19:24] LABS: ALANINE AMINOTRANSFERASE 23 U/L (12-78); ALBUMIN 3.9 G/DL (3.4-5.0); ALKALINE PHOSPHATASE 161 U/L (46-116); ASPARTATE AMINO TRANSFERASE 14 U/L (15-37); BILIRUBIN,TOTAL 0.3 MG/DL (0.2-1.0)
[2020-03-02 19:26] LABS: APPEARANCE,URINE SLIGHTLY CLOUDY
--- NOTE | 2020-03-02 19:40 | Emergency Room Report ---
History of Present Illness General Chief Complaint: Abdominal Pain Source: Patient Present Illness HPI 59-year-old female with no signal past medical history here complaining of left upper quadrant abdominal pain x1 week. Reports that is worse when laying down. Also complains of acid reflux. Reports that she drinks a lot of coffee and also eats a lot of spicy food every day. Reports that she also has history of arthritis and takes Celebrex, naprosyn, and Motrin on daily basis. Denies chest pain shortness of breath. Denies headache and dizziness. Denies any cough and congestion. Denies flatulence, diarrhea, constipation, blood in stool. Denies any nausea vomiting. Denies urinary symptoms. Has not taken any medication for symptom relief. Denies tobacco smoke, drug use, alcohol intake. Allergies: Coded Allergies: No Known Allergies (Unverified , 03/10/16) COVID-19 Screening Contact w/high risk pt: No Experienced COVID-19 symptoms?: No COVID-19 Testing performed RECREATIONAL ASSISTANT: No Patient History Past Medical History: see triage record Past Surgical History: none Pertinent Family History: none Reviewed Nursing Documentation: PMH: Agreed; PSxH: Agreed Nursing Documentation-PMH Past Medical History: No Stated History Review of Systems All Other Systems: negative except mentioned in HPI Physical Exam Vital Signs Date Time Temp Pulse Resp B/P (MAP) Pulse Ox O2 Delivery O2 Flow Rate FiO2 03/02/20 18:26 98.1 84 17 130/87 (101) 96 Room Air Sp02 EP Interpretation: reviewed, normal General Appearance: no apparent distress, alert, GCS 15, non-toxic Head: normocephalic, atraumatic Eyes: bilateral eye normal inspection, bilateral eye PERRL ENT: hearing grossly normal, normal pharynx, no angioedema, normal voice Neck: full range of motion, supple/symm/no masses Respiratory: chest non-tender, lungs clear, normal breath sounds, no rhonchi, no respiratory distress, no retraction, no accessory muscle use, no wheezing, speaking full sentences Cardiovascular #1: regular rate, rhythm, no edema Cardiovascular #2: 2+ carotid (R), 2+ carotid (L), 2+ radial (R), 2+ radial (L), 2+ dorsalis pedis (R), 2+ dorsalis pedis (L) Gastrointestinal: soft, no mass, no organomegaly, no peritonitis, no bruit, non-distended, no guarding, no rebound, other - Negative Bone's, negative McBurney's and Rovsing's Genitourinary: no CVA tenderness Musculoskeletal: back normal Neurologic: alert, motor strength/tone normal, oriented x3, sensory intact, responsive, speech normal Psychiatric: judgement/insight normal, memory normal, mood/affect normal, no suicidal/homicidal ideation Skin: no rash Lymphatic: no adenopathy Medical Decision Making PA Attestation ALL Diagnosis and treatment plan reviewed and discussed with my supervising physician Dr. Guzman Diagnostic Impression: Primary Impression: Gastritis Additional Impression: UTI (urinary tract infection) ER Course 59-year-old female with no signal past medical history here complaining of left upper quadrant abdominal pain x1 week. Reports that is worse when laying down. Also complains of acid reflux. Reports that she drinks a lot of coffee and also eats a lot of spicy food every day. Reports that she also has history of arthritis and takes Celebrex, naprosyn, and Motrin on daily basis. Denies chest pain shortness of breath. Denies headache and dizziness. Denies any cough and congestion. Denies flatulence, diarrhea, constipation, blood in stool. Denies any nausea vomiting. Denies urinary symptoms. Has not taken any medication for symptom relief. Denies tobacco smoke, drug use, alcohol intake. Ddx considered but are not limited to: appendicitis, cholecystis, gastritis, gastroenteritis, UTI, pyelonephritis, SBO, diverticulitis, pancreatitis Vital signs: are WNL, pt. is afebrile H&PE are most consistent with: Gastritis, UTI ORDERS: CBC, CMP, UA, troponin, EKG, chest x-ray, lipase, dicyclomine, Keflex, omeprazole ED INTERVENTIONS: NS bolus, Pepcid, Zofran At this time I do not believe any imaging needed patient is not guarding and not tender to palpation, patient clinical presentation and blood work correlate with possible gastritis however patient to follow primary care doctor if worsening symptoms return to emergency room. Also avoid eating spicy acidic food. Also ibuprofen and Naprosyn as well as Celebrex can contribute to worsening gastritis symptoms. DISCHARGE: At this time pt. is stable for d/c to home. Will provide printed patient care instructions, and any necessary prescriptions. Care plan and follow up instructions have been discussed with the patient prior to discharge. EKG Diagnostic Results Rate: normal Rhythm: NSR ST Segments: no acute changes Other Impression No acute ST changes ASA given to the pt in ED: No Chest X-Ray Diagnostic Results Chest X-Ray Diagnostic Results : Chest X-Ray Ordered: Yes # of Views/Limited/Complete: 1 View Indication: Other EP Interpretation: Yes PA Xray: Interpretation reviewed, by supervising MD, and agrees with findings. Interpretation: no consolidation, no effusion, no pneumothorax Impression: No acute disease Electronically Signed by: Cayetano Gaines PA-C Last Vital Signs Date Time Temp Pulse Resp B/P (MAP) Pulse Ox O2 Delivery O2 Flow Rate FiO2 03/02/20 19:03 98.1 17 130/87 96 Room Air 03/02/20 19:03 84 Disposition: HOME, SELF-CARE Condition: Stable Scripts Cephalexin* (KEFLEX*) 500 Mg Capsule 500 MG ORAL EVERY 12 HOURS for 7 Days, #14 CAP 0 Refills Prov: Cayetano Luis 03/02/20 Dicyclomine Hcl* (DICYCLOMINE HCL*) 10 Mg Capsule 10 MG ORAL QID, #20 CAP Prov: Cayetano Luis 03/02/20 Omeprazole (Omeprazole) 20 Mg Tab.rap.dr 20 MG PO DAILY for Gerd, #30 TAB Prov: Cayetano Luis 03/02/20 Referrals: [facility],REFERRING (PCP) Patient Instructions: Gastritis, Adult, [id number], Urinary Tract Infection, [id number] Additional Instructions: Take medication as directed, follow primary care provider, avoid eating spicy acidic food, worsening symptoms return to the emergency room Cayetano Luis Mar 02, 2020 19:40
[2020-03-02] MEDS ORDERED: OMEPRAZOLE20 M4 PO ×2 (19:41→19:57)
[2020-03-02] MEDS ORDERED: DICYCLOMINE HCL10 MG ORAL ×2 (19:41→19:57)
[2020-03-02] MEDS ORDERED: CEPHALEXIN500 MG ORAL ×2 (19:45→19:57)
[2020-03-02 19:50] VITALS: BP 124/80
--- NOTE | 2020-03-02 19:50 | NUR ---
ED Nurse Note: Pt cleared by health care Provider for discharge. DC instructions/prescription was given and explained to pt and verbalized understanding of teachings. Instructed to follow up with PCP within 2-6 days. All medical deviecs such as ID band removed. IV removed; site clean and bandaged. Pt is AAO x4, ambulatory and left with all personal belongings.
--- NOTE | 2020-03-03 09:52 | Diagnostic Imaging Report ---
Indication: Chest pain Technique: One view of the chest Comparison: 03/26/2017 Findings: . Ulceration currently. There is crowding of the bronchovascular markings. No definite acute infiltrates, effusion, or congestion. Upper limits normal heart size. No significant change Impression: No acute process
== END 2020-03-02 19:50 | disposition home or self-care (01) ==
LOC: EMR 19:24
DX: K29.70 Gastritis, unspecified, without bleeding (principal); N39.0 Urinary tract infection, site not specified
CPT/HCPCS: 36415; 71045; 80053; 80307; 81003; 83690; 84484; 85025; 87086; 93005; 96361; 96374; 96375; G0480; J2405; J7030; S0028; Z7502; 99284